=== PATIENT | female | born 1960 | race Caucasian/White ===

== ENCOUNTER 2022-01-17 18:44 | Emergency (ER) | payer OTHER ==
[~2022-01-17] VITALS: Ht 162.6 cm; Wt 59.0 kg
[2022-01-17] MEDS ORDERED: BUPR150T5 PO (19:16)
[2022-01-17] MEDS ORDERED: CLON1TAB PO (19:16)
[2022-01-17] MEDS ORDERED: LORAZEPAM 0.5 MG TABLET PO ONE (21:00)
[2022-01-17] MEDS ORDERED: LORAZEPAM 0.5 MG TABLET ONE (21:13)
[2022-01-17 21:14] LABS: HEMATOCRIT 42.1 % (31.2-41.9); MEAN CORPUSCULAR HEMOGLOBIN 28.2 uug (24.7-32.8); MEAN CORPUSCULAR VOLUME 85.3 fL (75.5-95.3); PLATELET COUNT (AUTO) 246 K/uL (179-408)
[2022-01-17] MEDS ORDERED: SWABABLE VALVE TRANSFER SET EA MC ONE (21:15)
[2022-01-17] MEDS ORDERED: IOHEXOL 300MG/ML 50 ML VIAL ONE (21:15)
[2022-01-17] MEDS ORDERED: IV NORMAL SALINE 250 ML IV ONE (21:16)
[2022-01-17 21:21] LABS: CREATININE 0.8 mg/dL (0.6-1.3)
[2022-01-17 21:34] LABS: BILIRUBIN,TOTAL 0.2 mg/dL (0.2-1.0); TOTAL PROTEIN, SERUM 7.8 g/dL (6.4-8.2)
--- NOTE | 2022-01-17 21:49 | NUR ---
pt taken to CT
--- NOTE | 2022-01-17 22:45 | NUR ---
Patient discharged to home in stable condition. Written and verbal after care instructions given. Patient verbalizes understanding of instructions. Stressed follow up or return to ER for worsening s/s. pt ambulated with steady gait. denies pain. [id number]
[2022-01-17 22:55] VITALS: BP 117/89
== END 2022-01-17 22:48 | disposition home or self-care (01) ==
LOC: ER 18:48
DX: R10.31 Right lower quadrant pain (principal); R14.0 Abdominal distension (gaseous); F32.A Depression, unspecified; Z79.899 Other long term (current) drug therapy
CPT/HCPCS: 99285; 74177; 80053; 83880; 83690; 85025; 36415; Q9967; A4663